=== PATIENT | female | born 1985 | race Caucasian/White ===

== ENCOUNTER 2016-11-07 09:59 | Emergency (ER) | payer SELFPAY ==
[~2016-11-07] VITALS: Ht 157.5 cm; Wt 64.2 kg
[~2016-11-07 09:59] MED LIST: PREN1TAB49 PO
[2016-11-07 10:13] VITALS: Ht 157.5 cm; Wt 64.2 kg
[2016-11-07] MEDS ORDERED: ACETAMINOPHEN 325 MG TAB PO ONE (11:30)
[2016-11-07 11:40] LABS: ADD UMIC NO; URINE BILIRUBIN (Dip) NEGATIVE (NEGATIVE); URINE BLOOD (Dip) NEGATIVE (NEGATIVE); URINE COLOR LT. YELLOW (YELLOW); URINE GLUCOSE (Dip) NEGATIVE (NEGATIVE); URINE KETONES (Dip) NEGATIVE (NEGATIVE); URINE LEUKOCYTE ESTERASE (Dip) NEGATIVE (NEGATIVE); URINE NITRITE (Dip) NEGATIVE (NEGATIVE); URINE TOTAL PROTEIN (Dip) NEGATIVE (NEGATIVE); URINE UROBILINOGEN (Dip) 0.2 E.U./dL (0.1-1.0)
--- NOTE | 2016-11-07 14:00 | RADRPT ---
PROCEDURE: US OB. CLINICAL INDICATION: . Abdominal pain. TECHNIQUE: Multiple sonographic images of the uterus were obtained. The images were revi ewed on a PACS workstation. COMPARISON: No prior studies are available for comparison. FINDINGS: There is a single live intrauterine gestation. heart rate is 152 beats per minute. Measurements were made in order to determine age. The results are as follows: BPD = 5.54 cm. HC = 17.20 cm. AC = 16.06 cm. FL = 3.50 cm. Estimated weight is 386 +/- 58 grams. LMP growth percentile is 48 %. Menstrual age by ultrasound dates is 20 weeks 2 days. The estimated date of delivery is 03/24/2017. #. Vertical pocket of amniotic fluid is 5.7 cm. Position is transverse with head to maternal right and placenta is anterior grade 1. There is no albert dence for an abruption or placenta previa. IMPRESSION: 1. Single live intrauterine gestation of 20 weeks 2 days menstrual age by ultrasound dates. 2. The estimated date of delivery is 03/24/2017. RPTAT: QQ .Yogi Sinclair MD, Date Time Electronically viewed and signed by .Yogi Sinclair MD, on 11/07/2016 14:00 .R/
[2016-11-07] MEDS ORDERED: ACET500C5 PO (14:02)
--- NOTE | 2016-11-07 14:06 | ERD ---
ER Documentation Chief Complaint Date/Time DATE: 11/07/16 TIME: 14:04 Chief Complaint 19 weeks , intermittent pelvic pain since August, worst today. HPI This 31-year-old female presents with some lower abdominal pain bilaterally. She is approximately 19 weeks by dates. She denies dysuria, fevers, bleeding. She has had this pain intermittently since August. She has OB follow-up. She is a G5 para 3. ROS All systems reviewed and are negative except as per history of present illness. Medications Home Meds Active Scripts Acetaminophen* (Tylophen*) 500 Mg Capsule, 1 CAP PO Q6H Y for PAIN AND OR ELEVATED TEMP, #20 CAP Prov:SALVADOR GRANADOS MD 11/07/16 Reported Medications Vits W-Ca,Fe,Fa(<1MG) () 1 Tab Tablet, 1 TAB PO DAILY 12/14/11 Allergies Allergies: Coded Allergies: No Known Drug Allergy (Verified Allergy, Unknown, 07/04/13) PMhx/Soc Medical and Surgical Hx: pt denies Medical Hx, pt denies Surgical Hx History of Surgery: No Hx Miscellaneous Medical Probl: No (NO OTHER MEDICAL PROBLEMS) Hx Alcohol Use: No Hx Substance Use: No Hx Tobacco Use: No Smoking Status: Never smoker Physical Exam Vitals Vital Signs Date Time Temp Pulse Resp B/P Pulse Ox O2 Delivery O2 Flow Rate FiO2 11/07/16 10:13 98.6 102 20 119/59 100 Physical Exam Const: [] Alert, [id number] per Head: Atraumatic Eyes: Normal Conjunctiva ENT: Normal External Ears, Nose and Mouth. Neck: Full range of motion..~ No meningismus. Resp: Clear to auscultation bilaterally Cardio: Regular rate and rhythm, no murmurs Abd: Soft, minimal generalized lower abdominal tenderness without exquisite tenderness at McBurney's point no rebound. There is a mass consistent with a second trimester , non distended. Normal bowel sounds Skin: No petechiae or rashes Back: No midline or flank tenderness Ext: No cyanosis, or edema Neur: Awake and alert Psych: Normal Mood and Affect Results 24 hrs Laboratory Tests Test 11/07/16 11:12 Urine Bilirubin NEGATIVE Urine Clarity CLEAR Urine Color LT. YELLOW Urine Glucose NEGATIVE% Urine Hemoglobin NEGATIVE Urine Ketones NEGATIVE Urine Leukocyte Esterase NEGATIVE Urine Nitrite NEGATIVE Urine Specific [place] 1.010 Urine Total Protein NEGATIVE Urine Urobilinogen 0.2 E.U./dL Urine pH 7.5 Current Medications Medications (Trade) Dose Ordered Sig/Freddy Route PRN Reason Start Time Stop Time Status Last Admin Dose Admin Acetaminophen (Tylenol Tab) 650 mg ONCE ONCE PO 11/07/16 11:30 11/07/16 11:31 DC 11/07/16 11:29 Procedures/MDM Pelvic ultrasound shows a normal-appearing second trimester without evidence of adnexal masses or acute complications. Urine is negative for leukocytes, nitrites, glucose, blood. Patient was given Tylenol for pain. Patient presents with pelvic pain of early of uncertain etiology. She will treated with Tylenol home and instructed to follow-up with OB this week. There is no evidence of ectopic , acute complications of . Signs or symptoms to suggest appendicitis, acute abdomen, PID or tubo-ovarian abscess, or additional causes of lower abdominal pain Departure Diagnosis: Primary Impression: Abdominal pain Abdominal location: lower abdomen, unspecified Qualified Code: R10.30 - Lower abdominal pain Condition: Stable Patient Instructions: Abdominal Pain, Early Additional Instructions: Examines normal hoy. Cheque otro vez con chavez doctor primario en el proximo willard or regresa para mas o nueva simptomas. SALVADOR GRANADOS MD Nov 07, 2016 14:06
== END 2016-11-07 14:17 | disposition home or self-care (01) ==
LOC: FTE 09:59
DX: O26.892 Other specified pregnancy related conditions, second trimester (principal); R10.30 Lower abdominal pain, unspecified; Z3A.20 20 weeks gestation of pregnancy
CPT/HCPCS: 76805; 81003

== ENCOUNTER 2016-11-15 11:00 | Outpatient (CLI) | payer SELFPAY ==
[~2016-11-15] VITALS: Ht 160 cm; Wt 65.5 kg
[~2016-11-15 11:00] MED LIST changes: +ACET500C5 PO
[2016-11-15] MEDS ORDERED: LACTATED RINGER'S 1,000 ML IV SCH (11:07)
[2016-11-15 11:22] VITALS: Ht 160 cm; Wt 65.5 kg
[2016-11-15] MEDS ORDERED: LIDOCAINE 1% (MPF) 30 ML INJ INJ PRN (11:30)
[2016-11-15] MEDS ORDERED: MISOPROSTOL 200 MCG TAB PR PRN (11:30)
[2016-11-15] MEDS ORDERED: IBUPROFEN 600 MG TAB PO PRN (11:30)
[2016-11-15] MEDS ORDERED: LACTATED RINGER'S 1,000 ML IV PRN (11:30)
[2016-11-15] MEDS ORDERED: OXYTOCIN 30 UNITS/LR 500 ML IV PRN (11:30)
[2016-11-15] MEDS ORDERED: CARBOPROST 250 MCG INJ IM PRN (11:30)
[2016-11-15] MEDS ORDERED: BUTORPHANOL 2 MG INJ IV PRN (11:30)
[2016-11-15] MEDS ORDERED: METHYLERGONOVINE 0.2 MG INJ IM PRN (11:30)
[2016-11-15] MEDS ORDERED: OXYTOCIN 30 UNITS/LR 500 ML IV SCH ×2 (11:30)
--- NOTE | 2016-11-15 12:13 | RADRPT ---
PROCEDURE: Limited obstetric ultrasound CLINICAL INDICATION: Pain , PTL TECHNIQUE: Multiple transverse and longitudinal grayscale images of the pelvis were obtained [place] sabdominally and transvaginally.. COMPARISON: 11/07/2016 FINDINGS: The cervix is closed with a length of 3.7 cm. There is a single viable intrauterine gestation. Cardiac activity is present with 154 beats per min [place]. There is a breech presentation. The placenta is anterior. There is no evidence for an abruption or placenta previa. RPTAT: AA IMPRESSION: Cervix length measures 3.7 cm. .Jared Hogue MD, MD Date Time Electronically viewed and signed by .Jared Hogue MD, on 11/15/2016 12:13 .S/
[2016-11-15 12:39] LABS: ADD UMIC YES; URINE BILIRUBIN (Dip) NEGATIVE (NEGATIVE); URINE BLOOD (Dip) NEGATIVE (NEGATIVE); URINE COLOR LT. YELLOW (YELLOW); URINE GLUCOSE (Dip) NEGATIVE (NEGATIVE); URINE KETONES (Dip) NEGATIVE (NEGATIVE); URINE LEUKOCYTE ESTERASE (Dip) 1+ (NEGATIVE); URINE NITRITE (Dip) NEGATIVE (NEGATIVE); URINE TOTAL PROTEIN (Dip) NEGATIVE (NEGATIVE); URINE UROBILINOGEN (Dip) 0.2 E.U./dL (0.1-1.0)
[2016-11-15 13:01] LABS: BACTERIA,URINE FEW; SQUAMOUS EPITHELIAL CELL,UR FEW; URINE RBCS NONE SEEN /HPF (0)
== END 2016-11-15 13:25 | disposition home or self-care (01) ==
LOC: OBT 11:00 → L-D 11:01 → OBT 13:25
PROVIDERS: ATTEND Obstetrics & Gynecology
DX: O60.02 Preterm labor without delivery, second trimester (principal); Z3A.22 22 weeks gestation of pregnancy
CPT/HCPCS: 76817; 81001; G0463; 81003

== ENCOUNTER 2017-01-17 19:45 | Inpatient (IN) | payer MEDICAID ==
[~2017-01-17] VITALS: Ht 162.6 cm; Wt 68.1 kg
[~2017-01-17 19:45] MED LIST changes: -ACET500C5 PO
[2017-01-17] MEDS ORDERED: LACTATED RINGER'S 500 ML IV ONE (21:00)
--- NOTE | 2017-01-17 21:30 | RADRPT ---
PROCEDURE: Limited obstetric ultrasound CLINICAL INDICATION: Pain TECHNIQUE: Multiple transverse and longitudinal grayscale images of the pelvis were obtained [place] sabdominally and transvaginally.. COMPARISON: 11/15/2016 FINDINGS: The cervix is closed with a length of 3.6 cm. There is a single viable intrauterine gestation. Cardiac activity is present with 146 beats per min kamar. There is a vertex presentation. The placenta is anterior. There is no evidence for an abruption or placenta previa. RPTAT: AA IMPRESSION: Cervix length measures 3.6 cm. .Jared Hogue MD, Date Time Electronically viewed and signed by .Jared Hogue MD, on 01/17/2017 21:30 .S/
[2017-01-17 21:51] LABS: ADD SCAN DIFF NO
[2017-01-17 21:53] LABS: BASOPHILS % 0.3 % (0.0-2.0); EOSINOPHILS % 0.3 % (0.0-7.0); HEMATOCRIT 34.4 % (37.0-47.0); LYMPHOCYTES # 2.1 10^3/ul (0.8-2.9); LYMPHOCYTES % 19.7 % (15.0-51.0); MEAN CORPUSCULAR HEMOGLOBIN 32.2 pg (29.0-33.0); MEAN CORPUSCULAR HGB CONC 34.9 g/dl (32.0-37.0); MEAN CORPUSCULAR VOLUME 92.2 fl (82.0-101.0); MEAN PLATELET VOLUME 9.8 fl (7.4-10.4); MONOCYTE # 0.5 10^3/ul (0.3-0.9); MONOCYTES % 4.5 % (0.0-11.0); NEUTROPHIL # 7.8 10^3/ul (1.6-7.5); NEUTROPHILS % 74.1 % (39.0-77.0); PLATELET COUNT 247 10^3/UL (140-415); RED BLOOD COUNT 3.73 10^6/ul (4.20-5.40); RED CELL DISTRIBUTION WIDTH 12.5 % (11.5-14.5); WHITE BLOOD COUNT 10.5 10^3/ul (4.8-10.8)
[2017-01-17 21:58] LABS: ADD UMIC YES; URINE BILIRUBIN (Dip) NEGATIVE (NEGATIVE); URINE BLOOD (Dip) NEGATIVE (NEGATIVE); URINE COLOR LT. YELLOW (YELLOW); URINE GLUCOSE (Dip) NEGATIVE (NEGATIVE); URINE KETONES (Dip) TRACE (NEGATIVE); URINE LEUKOCYTE ESTERASE (Dip) 1+ (NEGATIVE); URINE NITRITE (Dip) NEGATIVE (NEGATIVE); URINE TOTAL PROTEIN (Dip) NEGATIVE (NEGATIVE); URINE UROBILINOGEN (Dip) 0.2 E.U./dL (0.1-1.0)
[2017-01-17 22:12] LABS: BACTERIA,URINE MODERATE; SQUAMOUS EPITHELIAL CELL,UR MANY; URINE RBCS NONE SEEN /HPF (0)
[2017-01-17 22:20] LABS: ALBUMIN 3.7 g/dl (3.3-4.9)
[2017-01-17 22:21] LABS: POTASSIUM 3.5 mmol/L (3.5-5.1)
[2017-01-17 22:23] LABS: BILIRUBIN,INDIRECT 0.3 mg/dl (0-1.1); BILIRUBIN,TOTAL 0.3 mg/dl (0.2-1.3); CREATININE 0.43 mg/dl (0.44-1.00)
[2017-01-17 22:24] LABS: ALBUMIN/GLOBULIN RATIO 1.02; CALCIUM 9.3 mg/dl (8.4-10.2); TOTAL PROTEIN 7.3 g/dl (6.1-8.1)
[2017-01-17] MEDS ORDERED: CEFTRIAXONE 1 GM/50 ML (PMX) 50 ML IVPB ONE (23:00)
[2017-01-18] MEDS ORDERED: TERBUTALINE 1 MG/ML INJ SC ONE
[2017-01-18] MEDS ORDERED: LACTATED RINGER'S 1,000 ML IV SCH (00:25)
[2017-01-18] MEDS: SOD CHLORIDE 0.9% 1,000 ML IV SCH ×3 (01:29→18:52)
[2017-01-18] MEDS ORDERED: CEFTRIAXONE 1 GM/50 ML (PMX) 50 ML IVPB ONE (01:30)
--- NOTE | 2017-01-18 01:45 | HP ---
Date/Time of Note Date/Time of Note DATE: 01/18/17 TIME: 01:37 OB - History Hx of Present Free Text/Dictation 31y.o [id number] to triage with c/o nause and back pain for the laast few hrs at 31 weeks wbc [id number] with urine leukoesteras wbc 5-10 left CVA tenderness ++ CL 3.6 admitted for IV hydration with antibiotics Chief Complaint: back pain and nause Estimated Due Date: Mar 21, 2017 : 5 Para: 3 Spontaneous : 1 Therapeutic : 0 Care: Good Care Ultrasounds: Normal mid trimester US Obstetrical Complications: None Medical Complications: None Past Family/Social History * Past Medical, Surgical, Family and Obstetric Histories reviewed from chart. OB Admission Exam Physical Exam HEENT: WNL Heart: Rhythm Normal Lungs: Clear, Equal Abdomen: WNL Extremities: Normal Reflexes: Normal Cervical Dilatation: other Effacement: Other Station: Other Membranes: Intact Amniotic Fluid: Unevaluable Heart Rate: 140's Accelerations: Accelerations Present Decelerations: No Decelerations Varibility: Moderate Contractions on Admission: >10 Minutes Apart Intensity: Mild Last 72 hours Lab Results CBC & BMP 01/17/17 21:40 Liver Function Test 01/17/17 21:40 Alanine Aminotransferase (ALT/SGPT) 30 Albumin 3.7 Alkaline Phosphatase 130 H Aspartate Amino Transf (AST/SGOT) 24 Direct Bilirubin 0.00 Total Protein 7.3 OB Assessment/Plan Other Assessment: IUP 31weeks LIBRARY CLERK Other plan: IV hydration with rocMILDRED Baptiste MD January 18, 2017 01:45
[2017-01-18] MEDS ORDERED: ACETAMINOPHEN 325 MG TAB PO ONE (02:30)
--- NOTE | 2017-01-18 03:51 | TRIAGE ---
OB Triage Datetime Report Generated by CPN: 01/18/2017 03:51 Datetime: 01/18/2017 03:00 Labor Evaluation Frequency: x4 Monitor Mode: External Duration (sec)2399: 50-80 Quality: Mild Resting Tone [place]: Relaxed Contraction Comments: pt c/o uc pain at 5 out of 10. Heart Rate FHR Baseline Rate: 145 Monitor Mode: External US FHR Baseline Changes: No Baseline Change Variability: Moderate 6-25 bpm Accelerations: 10X10 Decelerations: None Category: Category I Pain Assessment Pain Scale: 5 Pain Presence: Intermittent Pain Type: Cramping; Ache Pain Location: Abdomen; Head Pain Goal: 0 Pain Relief Measures: Pain Medication Given Pain Assessment Comments: pt given tylenol 650mg po Datetime: 01/18/2017 02:00 Labor Evaluation Frequency: x3 Monitor Mode: External Duration (sec)2399: 60-90 Quality: Mild Resting Tone [place]: Relaxed Contraction Comments: pt c/o uc pain at 6 out of 10 Heart Rate FHR Baseline Rate: 150 Monitor Mode: External US FHR Baseline Changes: No Baseline Change Variability: Moderate 6-25 bpm Accelerations: 15X15 Decelerations: None Category: Category I Pain Assessment Pain Scale: 6 Pain Presence: Intermittent Pain Type: Cramping; Ache Pain Location: Abdomen; Head Pain Goal: 0 Datetime: 01/18/2017 00:55 Assessment Type: Admission Assessment Vaginal Bleeding: None Maternal Assessment Level of Consciousness: Fully Conscious DTR's/Clonus: DTRs 2+; No Clonus Headache: Denies Blurred Vision: No Respiratory Effort: Unlabored; Regular Rhythm; Equal Expansion Breath Sounds, Left: Clear and Equal Breath Sounds, Right: Clear and Equal Nausea/Vomiting: Denies RUQ Epigastric Pain: Denies Lower Extremities Edema: None Degree: None Upper Extremities Edema: None Degree: None Facial Edema: None Fall Risk Assessment History of Falling: (0) No Secondary Diagnosis: (0) No Ambulatory Aid: (0) Bedrest/Nurse Assist IV Therapy: (20) Yes Gait: (0) Normal/Bedrest/Immobile Mental Status: (0) Oriented to Own Ability Fall Score: 20 Fall Risk Score Definition: No Risk: No action required Labor Evaluation Frequency: x1 Monitor Mode: External Duration (sec)2399: 60 Quality: Moderate Resting Tone [place]: Relaxed Heart Rate FHR Baseline Rate: 150 Variability: Moderate 6-25 bpm Accelerations: 15X15 Decelerations: Variable Category: Category II Pain Assessment Pain Scale: 6 Pain Presence: Intermittent Pain Type: Contraction Pain Location: Abdomen Pain Goal: 0 Membrane Status: Intact Datetime: 01/18/2017 00:00 Labor Evaluation Frequency: x5 with irritability Monitor Mode: External Duration (sec)2399: 60-100 Pattern: Normal: <= 5 Contractions in 10 Minutes Resting Tone [place]: Relaxed Heart Rate FHR Baseline Rate: 145 Monitor Mode: External US Variability: Moderate 6-25 bpm Accelerations: 15X15 Decelerations: None Category: Category I Datetime: 01/17/2017 23:32 Vaginal Exam Dilatation (cms): 0.0 Effacement (%): 0 Station: -3 Exam By: Zhang Tungate RN Vaginal Bleeding: None Cervix, Consistency: Moderate Cervix, Position: Posterior Datetime: 01/17/2017 23:00 Stage of : OB Triage Labor Evaluation Frequency: 1-2.5 Monitor Mode: External Duration (sec)2399: 40-70 Quality: Moderate Resting Tone [place]: Relaxed Heart Rate FHR Baseline Rate: 155 Monitor Mode: External US Variability: Moderate 6-25 bpm Accelerations: 15X15 Decelerations: None Category: Category I Pain Assessment Pain Scale: 6 Pain Presence: Intermittent Pain Type: Contraction; Pressure Pain Location: Abdomen Pain Goal: 3 Datetime: 01/17/2017 22:29 Stage of : OB Triage Datetime: 01/17/2017 22:21 Stage of : OB Triage Labor Evaluation Frequency: 1-6 Monitor Mode: External Duration (sec)2399: 30-70 Quality: Mild Pattern: Normal: <= 5 Contractions in 10 Minutes Resting Tone [place]: Relaxed Heart Rate FHR Baseline Rate: 145 Monitor Mode: External US Variability: Moderate 6-25 bpm Accelerations: 15X15 Decelerations: None Category: Category I Pain Assessment Pain Scale: 6 Pain Presence: None/Denies Pain Type: N/A Pain Location: Abdomen Pain Goal: 3 Pain Relief Measures: Pain Medication Given Datetime: 01/17/2017 21:28 Stage of : OB Triage Labor Evaluation Frequency: IRREGUALAR Monitor Mode: External Duration (sec)2399: 30-60 Quality: Mild Heart Rate FHR Baseline Rate: 145 Monitor Mode: External US Variability: Moderate 6-25 bpm Accelerations: 15X15 Decelerations: None Category: Category I Datetime: 01/17/2017 21:10 Time of Arrival: 01/17/2017 19:40 EGA: 31.0 Arrived By: Ambulatory Arrived From: Home Chief Complaint: PT C/O BACK PAIN AND ABDOMEN TIGHTNESS Movement: Present Contractions: Irregular Time Contractions Began: 01/17/2017 16:00 Rupture of Membranes: Denies Vaginal Discharge: Denies Recent Sexual Intercouse: Denies Abdominal Trauma: Not Applicable Patient Complaints: Contractions Time Provider Notified: 01/18/2017 20:28 Provider Notified: DR GEE Initial Plan: TOCO AND EFM APPLIED, Datetime: 01/17/2017 20:31 Stage of : OB Triage Datetime: 01/17/2017 20:20 Stage of : OB Triage Labor Evaluation Frequency: 30 Monitor Mode: External Duration (sec)2399: 30 Quality: Moderate Pattern: Normal: <= 5 Contractions in 10 Minutes Resting Tone [place]: Relaxed Heart Rate FHR Baseline Rate: 145 Monitor Mode: External US Variability: Moderate 6-25 bpm Accelerations: 10X10 Decelerations: None Category: Category I Pain Assessment Pain Scale: 6 Pain Presence: None/Denies Pain Type: Contraction Pain Location: Abdomen Pain Goal: 3 Datetime: 11/15/2016 13:11 Stage of : OB Triage Datetime: 11/15/2016 12:20 Labor Evaluation Frequency: X1 Monitor Mode: External Duration (sec)2399: 30 Resting Tone [place]: Relaxed Pain Assessment Pain Scale: 0 Pain Presence: None/Denies Pain Goal: 3 Pain Relief Measures: Comfort Measures Pain Assessment Comments: STATES PAIN GONE Datetime: 11/15/2016 12:17 Comments: OFF DUE TO GESTATIONAL AGE Datetime: 11/15/2016 12:10 Stage of : OB Triage Datetime: 11/15/2016 12:00 Comments: U/S OFF DUE TO GESTATIONAL AGE Datetime: 11/15/2016 11:33 Stage of : OB Triage Datetime: 11/15/2016 11:18 Stage of : OB Triage Assessment Type: Triage EGA: 22.0 Maternal Assessment Level of Consciousness: Fully Conscious DTR's/Clonus: DTRs 2+; No Clonus Headache: Denies Blurred Vision: No Respiratory Effort: Unlabored; Regular Rhythm; Equal Expansion Breath Sounds, Left: Clear and Equal Breath Sounds, Right: Clear and Equal Nausea/Vomiting: Denies RUQ Epigastric Pain: Denies Lower Extremities Edema: None Degree: None Upper Extremities Edema: None Degree: None Facial Edema: None Temperature Route: Axillary Fall Risk Assessment History of Falling: (0) No Secondary Diagnosis: (0) No Ambulatory Aid: (0) Bedrest/Nurse Assist IV Therapy: (0) No Gait: (0) Normal/Bedrest/Immobile Mental Status: (0) Oriented to Own Ability Fall Score: 0 Fall Risk Score Definition: No Risk: No action required Labor Evaluation Frequency: 0 Monitor Mode: External Pattern: Normal: <= 5 Contractions in 10 Minutes Resting Tone [place]: Relaxed Heart Rate FHR Baseline Rate: 155 Monitor Mode: External US Variability: Moderate 6-25 bpm Decelerations: None Pain Assessment Pain Scale: 4 Pain Presence: Intermittent Pain Type: Cramping Pain Location: Abdomen Pain Goal: 3 Pain Relief Measures: Comfort Measures Datetime: 11/15/2016 11:17 Time of Arrival: 11/15/2016 10:53 Arrived By: Ambulatory Arrived From: Home Chief Complaint: C/O LOWER PELVIC PAIN FOR PAST WEEK, WAS IN ER YESTERDAY RECEIVED U/S AND SENT H OME Movement: Present Contractions: Denies/Absent Rupture of Membranes: Denies Vaginal Bleeding: None Vaginal Discharge: Denies Recent Sexual Intercouse: Denies Abdominal Trauma: Not Applicable Patient Complaints: Cramping Time Provider Notified: 11/15/2016 12:10 Provider Notified: ALEXI Initial Plan: MONITOR, CL, U/A
[2017-01-18] MEDS: ACETAMINOPHEN 325 MG TAB PO PRN ×2 (08:06→13:25)
--- NOTE | 2017-01-18 17:18 | QN ---
Documentation Comment Vitals signs are stable no fever since admit preliminary 24 hours urine cultures negative currently she is on Rocephin has no complaint of flank pain stating her backache has gone the next dose of Rocephin would be at 1 AM on the will wait for the final urine culture. LUISITO CASTELLANOS MD January 18, 2017 17:18
[2017-01-19] MEDS: CEFTRIAXONE 1 GM/50 ML (PMX) 50 ML IVPB SCH (01:44)
[2017-01-19] MEDS: SOD CHLORIDE 0.9% 1,000 ML IV SCH ×3 (03:17→20:07)
[2017-01-19] MEDS ORDERED: TERBUTALINE 1 MG/ML INJ SC STA (15:58)
[2017-01-19] MEDS ORDERED: BETAMET NA PHOS/AC(6 MG/ML) 5ML INJ IM ONE (16:00)
--- NOTE | 2017-01-19 16:49 | QN ---
Documentation Comment Afebrile has no complaint of flank pain back pain or lower abdominal final urine culture mixed gram-positive, lactobacillus ,requested repeat clean-catch, urine culture, she had 2 doses of betamethasone will continue present treatment, LUISITO CASTELLANOS MD January 19, 2017 16:49
[2017-01-19] MEDS ORDERED: TERBUTALINE 1 MG/ML INJ SC ONE (19:30)
[2017-01-19] MEDS: ACETAMINOPHEN 325 MG TAB PO PRN (22:29)
[2017-01-20 00:34] VITALS: Ht 162.6 cm; Wt 68.1 kg
[2017-01-20] MEDS: CEFTRIAXONE 1 GM/50 ML (PMX) 50 ML IVPB SCH (01:30)
[2017-01-20] MEDS: SOD CHLORIDE 0.9% 1,000 ML IV SCH ×2 (04:39→11:32)
[2017-01-20] MEDS ORDERED: TERBUTALINE 1 MG/ML INJ SC ONE (07:00)
[2017-01-20] MEDS ORDERED: MULTIVIT/MIN/FOLATE/IRON/PREN TAB PO SCH (09:00)
--- NOTE | 2017-01-20 11:09 | RADRPT ---
PROCEDURE: Limited OB ultrasound CLINICAL INDICATION: labor. TECHNIQUE: Sonographic evaluation to assess the cervical length was performed. Transabdominal kosta ging of the gravid uterus was performed. COMPARISON: No prior exam is available for comparison. FINDINGS: There is a single live intrauterine with cardiac activity, with a heart rate o f 179 bpm. position is cephalic. The placenta is anterior. There is funneling of the cervix . The close cervical length measures 3.4 cm. IMPRESSION: Cervical funneling. The closed cervical length measures 3.4 cm. RPTAT: HH .Debbie Mcknight MD, MD Date Time Electronically viewed and signed by .Debbie Mcknight MD, MD on 01/20/2017 11:08 .G/
[2017-01-20] MEDS ORDERED: BETAMET NA PHOS/AC(6 MG/ML) 5ML INJ IM ONE (16:00)
--- NOTE | 2017-01-20 18:44 | DS ---
Date/Time of Note Date/Time of Note DATE: 01/20/17 TIME: 18:36 Obstetrical Discharge Record Final Diagnosis Final Diagnosis: not delivered Other Final Diagnosis January 20, 2070 Hospital visit and discharge 31y.o G5, P3 Ab 1, presented to triage with c/o nausea and back pain for the last few days .At 31 weeks now. wbc [id number] with urine leukoesteras wbc 5-10 left CVA tenderness ++ CL 3.6 admitted for IV hydration with antibiotics Upon admission she was placed on antibiotic Rocephin 1 g every night. Due to the contraction that she had a cervical length measurement was performed. Her cervical length on January 17 was 3.6 today on January 20 is 3.4. Due to contractions first dose of betamethasone was started yesterday and today was given the second dose Patient is now fairly comfortable and not much of the contractions. Due to urinary tract infection a prescription was given for Macrobid 100 mg twice daily to continue for 2 weeks . She will have her follow up care in her OB office as well as in [facility] clinic Current Medications Medications (Trade) Dose Ordered Sig/Freddy Route PRN Reason Start Time Stop Time Status Last Admin Dose Admin Lactated Ringer's 500 ml @ 500 mls/hr Q1H ONCE IV 01/17/17 21:00 01/17/17 21:59 DC 01/17/17 21:46 Ceftriaxone Sodium (Rocephin) 50 ml @ 100 mls/hr ONCE ONCE IVPB 01/17/17 23:00 01/17/17 23:29 DC Terbutaline Sulfate 0.25 mg 0.25 mg ONCE ONCE SC 01/18/17 00:00 01/18/17 00:01 DC 01/18/17 00:08 Lactated Ringer's 1,000 ml @ 125 mls/hr Q8H IV 01/18/17 00:25 01/18/17 01:18 DC Sodium Chloride 1,000 ml @ 125 mls/hr Q8H IV 01/18/17 01:30 01/20/17 11:32 Ceftriaxone Sodium (Rocephin) 50 ml @ 100 mls/hr ONCE ONCE IVPB 01/18/17 01:30 01/18/17 01:59 DC 01/18/17 01:30 Acetaminophen 650 mg 650 mg ONCE ONCE PO 01/18/17 02:30 01/18/17 02:34 DC 01/18/17 03:00 Ceftriaxone Sodium (Rocephin) 50 ml @ 100 mls/hr Q24H IVPB 01/19/17 01:30 01/20/17 01:30 Acetaminophen (Tylenol Tab) 650 mg Q4H PRN PO PAIN AND OR ELEVATED TEMP 01/18/17 08:00 01/19/17 22:29 Terbutaline Sulfate (Brethine) 0.25 mg NOW STAT SC 01/19/17 15:58 01/19/17 16:07 DC 01/19/17 16:13 Betamethasone Acet/Betameth SodPhos (Celestone Soluspan) 12 mg ONCE ONCE IM 01/19/17 16:00 01/19/17 16:07 DC 01/19/17 16:13 Terbutaline Sulfate (Brethine) 0.25 mg ONCE ONCE SC 01/19/17 19:30 01/19/17 19:30 DC Betamethasone Acet/Betameth SodPhos (Celestone Soluspan) 12 mg ONCE ONCE IM 01/20/17 16:00 01/20/17 16:01 DC 01/20/17 16:07 Terbutaline Sulfate (Brethine) 0.25 mg ONCE ONCE SC 01/20/17 07:00 01/20/17 07:01 DC 01/20/17 07:08 Prenat Multivit/ Tool And Die Manager/Iron/Folic Ac ( S) 1 tab DAILY PO 01/20/17 09:00 01/20/17 08:47 Complications Other (Urinary tract infection pyelonephritis) Condition on Discharge Physical Assessment Voiding: Yes Bowel Movement: Yes Breast: Soft, non-tender Fundus: Other (Normal for date of just) Patient Condition: Good PRADEEP KING MD January 20, 2017 18:44
== END 2017-01-20 19:15 | disposition home or self-care (01) | DRG 781 ==
LOC: OBT 19:45 → L-D 19:47 → OBT 23:55 → L-D 23:55 → OBG 01-18 00:37
PROVIDERS: ADMIT Obstetrics & Gynecology; ATTEND Obstetrics & Gynecology
DX: O23.03 Infections of kidney in pregnancy, third trimester (principal); Z3A.31 31 weeks gestation of pregnancy
CPT/HCPCS: 36415; 76817; 80053; 81001; 81003; 85025; 87086; 96360; 96361; 96372; A4310; G0463; J0696; J0702; J3105; J7030; J7120

== ENCOUNTER 2017-02-21 17:07 | Outpatient (CLI) | payer MEDICAID ==
[~2017-02-21] VITALS: Ht 160 cm; Wt 71.5 kg
[2017-02-21 17:38] VITALS: BP 109/63; PULSE 84; Ht 160 cm; Wt 71.5 kg
[2017-02-21] MEDS: LACTATED RINGER'S 1,000 ML IV SCH ×2 (18:30→22:03)
[2017-02-21] MEDS ORDERED: TERBUTALINE 1 MG/ML INJ SC ONE (21:00)
[2017-02-21] MEDS ORDERED: NIFEdipine 10 MG CAP PO ONE ×2 (22:00→23:00)
[2017-02-21 22:48] LABS: ADD UMIC NO; URINE BILIRUBIN (Dip) NEGATIVE (NEGATIVE); URINE BLOOD (Dip) NEGATIVE (NEGATIVE); URINE COLOR LT. YELLOW (YELLOW); URINE GLUCOSE (Dip) NEGATIVE (NEGATIVE); URINE KETONES (Dip) 3+ (NEGATIVE); URINE LEUKOCYTE ESTERASE (Dip) NEGATIVE (NEGATIVE); URINE NITRITE (Dip) NEGATIVE (NEGATIVE); URINE TOTAL PROTEIN (Dip) NEGATIVE (NEGATIVE); URINE UROBILINOGEN (Dip) 0.2 E.U./dL (0.1-1.0)
--- NOTE | 2017-02-22 03:16 | PN ---
Date/Time of Note Date/Time of Note DATE: 02/22/17 TIME: 03:12 OB Subjective Subjective Subjective 31 Year-old with SIUP at 36 weeks presents with a chief complaint of ucs. She states good movement. She denies nausea, vomiting, shortness of breath, chest pain, headache, visual changes, vaginal bleeding or LOF. OB Objective Objective Objective General: Patient appears well, alert and oriented, NAD, appropriate mood and affect ABD: gravid, soft, non-tender. Back: No CVA tenderness (B/L) LE: No clubbing, cyanosis, edema, thigh or calf tenderness bilaterally FHT: 140 bpm , moderate variability with acceleration, no deceleration-category I Contractions: Q 4-6 min.e SVE: /-3/ceph/intact membrane OB Assessment/Plan Other plan: 31 Year-old with SIUP at 36 weeks with PTc, received IVF, procardia x1. There was no further ucs. No cx changes in repeat exam - FHR: No sign of metabolic acidosis- Category I - Continuous EFM, toco - U/A: nml - Symptoms and sign of labor, preeclampsia, kick count discussed with patient, she voiced understanding. All of her questions answered. - Patient was discharged home in stable condition with the appropriate discharge instructions provided. I would like patient to have close follow-up with her primary physician or outpatient clinic in 1-2 days or return to the ER for worsening symptoms or any other urgent concerns. LIANA JONES Feb 22, 2017 03:16
--- NOTE | 2017-02-22 04:50 | TRIAGE ---
OB Triage Datetime Report Generated by CPN: 02/22/2017 04:49 Datetime: 02/21/2017 23:58 Labor Evaluation Frequency: IRREGULAR Monitor Mode: External Duration (sec)2399: 30-120 Quality: Mild Pattern: Normal: <= 5 Contractions in 10 Minutes Resting Tone [place]: Relaxed Heart Rate FHR Baseline Rate: 145 Monitor Mode: External US FHR Baseline Changes: No Baseline Change Variability: Moderate 6-25 bpm Accelerations: 15X15 Decelerations: None Category: Category I Datetime: 02/21/2017 23:00 Labor Evaluation Frequency: 5-7 Monitor Mode: External Duration (sec)2399: 60-120 Quality: Mild Pattern: Normal: <= 5 Contractions in 10 Minutes Resting Tone [place]: Relaxed Heart Rate FHR Baseline Rate: 145 Monitor Mode: External US FHR Baseline Changes: No Baseline Change Variability: Moderate 6-25 bpm Accelerations: 15X15 Decelerations: None Category: Category I Datetime: 02/21/2017 22:27 Stage of : OB Triage Datetime: 02/21/2017 22:00 Labor Evaluation Frequency: 2-3 Monitor Mode: External Duration (sec)2399: 60-120 Quality: Mild Pattern: Normal: <= 5 Contractions in 10 Minutes Resting Tone [place]: Relaxed Heart Rate FHR Baseline Rate: 145 Monitor Mode: External US FHR Baseline Changes: No Baseline Change Variability: Moderate 6-25 bpm Accelerations: 15X15 Decelerations: None Category: Category I Datetime: 02/21/2017 21:00 Labor Evaluation Frequency: 3 Monitor Mode: External Duration (sec)2399: 60-100 Quality: Mild Pattern: Normal: <= 5 Contractions in 10 Minutes Resting Tone [place]: Relaxed Heart Rate FHR Baseline Rate: 145 Monitor Mode: External US FHR Baseline Changes: No Baseline Change Variability: Moderate 6-25 bpm Accelerations: 15X15 Decelerations: None Category: Category I Datetime: 02/21/2017 20:00 Labor Evaluation Frequency: IRREGULAR Monitor Mode: External Duration (sec)2399: 60-100 Quality: Mild Pattern: Normal: <= 5 Contractions in 10 Minutes Resting Tone [place]: Relaxed Heart Rate FHR Baseline Rate: 135 Monitor Mode: External US FHR Baseline Changes: No Baseline Change Variability: Moderate 6-25 bpm Accelerations: 15X15 Decelerations: None Category: Category I Datetime: 02/21/2017 19:34 Vaginal Exam Dilatation (cms): 1.0 Effacement (%): 50 Station: -3 Exam By: NARA VARNER Vaginal Bleeding: None Cervix, Consistency: Firm Cervix, Position: Posterior Datetime: 02/21/2017 19:20 Assessment Type: Triage Maternal Assessment Level of Consciousness: Fully Conscious DTR's/Clonus: DTRs 2+; No Clonus Headache: Denies Blurred Vision: No Respiratory Effort: Unlabored; Regular Rhythm; Equal Expansion Breath Sounds, Left: Clear and Equal Breath Sounds, Right: Clear and Equal Nausea/Vomiting: Denies RUQ Epigastric Pain: Denies Facial Edema: None Fall Risk Assessment History of Falling: (0) No Secondary Diagnosis: (0) No Ambulatory Aid: (0) Bedrest/Nurse Assist IV Therapy: (0) No Gait: (0) Normal/Bedrest/Immobile Mental Status: (0) Oriented to Own Ability Fall Score: 0 Fall Risk Score Definition: No Risk: No action required Datetime: 02/21/2017 18:06 Stage of : OB Triage Datetime: 02/21/2017 17:32 Stage of : OB Triage Assessment Type: Triage Maternal Assessment Level of Consciousness: Fully Conscious DTR's/Clonus: DTRs 2+; No Clonus Headache: Denies Blurred Vision: No Respiratory Effort: Unlabored; Regular Rhythm; Equal Expansion Breath Sounds, Left: Clear and Equal Breath Sounds, Right: Clear and Equal Nausea/Vomiting: Denies RUQ Epigastric Pain: Denies Facial Edema: None Temperature Route: Axillary Fall Risk Assessment History of Falling: (0) No Secondary Diagnosis: (0) No Ambulatory Aid: (0) Bedrest/Nurse Assist IV Therapy: (0) No Gait: (0) Normal/Bedrest/Immobile Mental Status: (0) Oriented to Own Ability Fall Score: 0 Fall Risk Score Definition: No Risk: No action required Labor Evaluation Frequency: 3-5 Monitor Mode: External Duration (sec)2399: 50-60 Quality: Mild Resting Tone [place]: Relaxed Heart Rate FHR Baseline Rate: 145 Monitor Mode: External US Variability: Moderate 6-25 bpm Decelerations: None Category: Category II Pain Assessment Pain Scale: 7 Pain Presence: Intermittent Pain Type: Cramping; Contraction Pain Location: Abdomen Pain Goal: 3 Pain Relief Measures: Comfort Measures Vaginal Exam Dilatation (cms): 1.0 Effacement (%): 50 Station: -3 Exam By: S PRASAD Membrane Status: Intact Datetime: 02/21/2017 17:31 Time of Arrival: 02/21/2017 17:15 EGA: 36.0 Arrived By: Ambulatory Chief Complaint: C/O UC'S Q 5 MIN SINCE 1200, DENIES BLEEDING OR LEAKING OF FLUID Movement: Present Contractions: Regular Contractions: 5 Rupture of Membranes: Denies Vaginal Bleeding: None Vaginal Discharge: Denies Recent Sexual Intercouse: Denies Abdominal Trauma: Not Applicable Patient Complaints: Contractions; Cramping Time Provider Notified: 02/21/2017 18:07 Provider Notified: SHAMSIGUALBERTO Initial Plan: MONITOR, IV HYDRATION, RECHECK VE IN 1 HOUR Datetime: 01/20/2017 18:12 Labor Evaluation Frequency: IRRIT Monitor Mode: External Pattern: Normal: <= 5 Contractions in 10 Minutes Resting Tone [place]: Relaxed Datetime: 01/20/2017 17:12 Labor Evaluation Frequency: X1/HR +IRRIT Labor Evaluation Frequency: X1/HR Monitor Mode: External Duration (sec)2399: 50 Duration (sec)2399: 40 Pattern: Normal: <= 5 Contractions in 10 Minutes Resting Tone [place]: Relaxed Datetime: 01/20/2017 16:12 Temperature Route: Oral Labor Evaluation Frequency: 0 Monitor Mode: External Pattern: Normal: <= 5 Contractions in 10 Minutes Resting Tone [place]: Relaxed Datetime: 01/20/2017 15:12 Labor Evaluation Frequency: 0 Monitor Mode: External Pattern: Normal: <= 5 Contractions in 10 Minutes Resting Tone [place]: Relaxed Datetime: 01/20/2017 14:12 Labor Evaluation Frequency: X2/HR +IRRIT Monitor Mode: External Duration (sec)2399: 40 TO 70 Quality: Mild Pattern: Normal: <= 5 Contractions in 10 Minutes Resting Tone [place]: Relaxed Datetime: 01/20/2017 13:17 Labor Evaluation Frequency: X2/HR +IRRIT Monitor Mode: External Duration (sec)2399: 60 TO 90 Quality: Mild Pattern: Normal: <= 5 Contractions in 10 Minutes Resting Tone [place]: Relaxed Datetime: 01/20/2017 12:12 Temperature Route: Oral Labor Evaluation Frequency: X4/HR +IRRIT Monitor Mode: External Duration (sec)2399: 40 TO 70 Quality: Mild Pattern: Normal: <= 5 Contractions in 10 Minutes Resting Tone [place]: Relaxed Pain Assessment Pain Scale: 1 Pain Presence: OCCASIONALLY Pain Goal: 3 Datetime: 01/20/2017 11:12 Labor Evaluation Frequency: X2/HR Monitor Mode: External Duration (sec)2399: 60 TO 70 Pattern: Normal: <= 5 Contractions in 10 Minutes Resting Tone [place]: Relaxed Pain Assessment Pain Scale: 1 Pain Presence: OCCASIONALLY Pain Goal: 3 Datetime: 01/20/2017 10:12 Labor Evaluation Frequency: X6/HR Monitor Mode: External Duration (sec)2399: 40 TO 90 Quality: Mild Pattern: Normal: <= 5 Contractions in 10 Minutes Resting Tone [place]: Relaxed Datetime: 01/20/2017 09:12 Labor Evaluation Frequency: X8/HR Monitor Mode: External Duration (sec)2399: 50 TO 80 Quality: Mild Pattern: Normal: <= 5 Contractions in 10 Minutes Resting Tone [place]: Relaxed Datetime: 01/20/2017 08:12 Maternal Assessment Level of Consciousness: Fully Conscious DTR's/Clonus: DTRs 2+; No Clonus Headache: Denies Breath Sounds, Left: Clear and Equal Breath Sounds, Right: Clear and Equal Nausea/Vomiting: Denies RUQ Epigastric Pain: Denies Temperature Route: Oral Labor Evaluation Frequency: X6/HR Duration (sec)2399: 50 TO 90 Quality: Mild Pattern: Normal: <= 5 Contractions in 10 Minutes Resting Tone [place]: Relaxed Datetime: 01/20/2017 07:27 Assessment Type: Ongoing Assessment Blurred Vision: No Respiratory Effort: Unlabored; Regular Rhythm; Equal Expansion Lower Extremities Edema: None Degree: None Upper Extremities Edema: None Degree: None Facial Edema: None Fall Risk Assessment History of Falling: (0) No Secondary Diagnosis: (0) No Ambulatory Aid: (0) Bedrest/Nurse Assist Gait: (0) Normal/Bedrest/Immobile Mental Status: (0) Oriented to Own Ability Datetime: 01/20/2017 07:08 Stage of : Antepartum Datetime: 01/20/2017 07:00 Stage of : Antepartum Labor Evaluation Frequency: 2-6 Monitor Mode: External Duration (sec)2399: 50-80 Pattern: Normal: <= 5 Contractions in 10 Minutes Resting Tone [place]: Relaxed Datetime: 01/20/2017 06:38 Stage of : Antepartum Datetime: 01/20/2017 06:23 Stage of : Antepartum Datetime: 01/20/2017 06:21 Stage of : Antepartum Pain Assessment Pain Scale: 6 Pain Presence: Intermittent Pain Type: Contraction Pain Location: Abdomen; Back Pain Relief Measures: Comfort Measures Datetime: 01/20/2017 06:00 Stage of : Antepartum Labor Evaluation Frequency: IRREG Monitor Mode: External Duration (sec)2399: 60-80 Pattern: Normal: <= 5 Contractions in 10 Minutes Resting Tone [place]: Relaxed Datetime: 01/20/2017 05:32 Stage of : Antepartum Datetime: 01/20/2017 05:00 Stage of : Antepartum Labor Evaluation Frequency: IRREG Monitor Mode: External Duration (sec)2399: 50-70 Pattern: Normal: <= 5 Contractions in 10 Minutes Resting Tone [place]: Relaxed Pain Assessment Pain Scale: 4 Pain Presence: Intermittent Pain Type: Contraction Pain Location: Abdomen; Back Pain Relief Measures: Comfort Measures Datetime: 01/20/2017 04:59 Stage of : Antepartum Nausea/Vomiting: Present Datetime: 01/20/2017 04:03 Stage of : Antepartum Labor Evaluation Frequency: occasional Monitor Mode: External Duration (sec)2399: 40-70 Pattern: Normal: <= 5 Contractions in 10 Minutes Resting Tone [place]: Relaxed Contraction Comments: pt states that she does not feel any contractions. Pain Assessment Pain Scale: 0 Pain Presence: None/Denies Pain Type: N/A Pain Relief Measures: Comfort Measures Datetime: 01/20/2017 03:06 Stage of : Antepartum Datetime: 01/20/2017 02:59 Stage of : Antepartum Labor Evaluation Frequency: Irregular Monitor Mode: External Duration (sec)2399: 40-60 Pattern: Normal: <= 5 Contractions in 10 Minutes Resting Tone [place]: Relaxed Pain Assessment Pain Scale: 0 Pain Presence: None/Denies Pain Type: N/A Pain Relief Measures: Comfort Measures Datetime: 01/20/2017 02:57 Stage of : Antepartum Datetime: 01/20/2017 02:02 Stage of : Antepartum Labor Evaluation Frequency: Occasional Monitor Mode: External Duration (sec)2399: 40-60 Pattern: Normal: <= 5 Contractions in 10 Minutes Resting Tone [place]: Relaxed Pain Assessment Pain Scale: 0 Pain Presence: None/Denies Pain Type: N/A Pain Relief Measures: Comfort Measures Datetime: 01/20/2017 01:04 Stage of : Antepartum Labor Evaluation Frequency: None Monitor Mode: External Pain Presence: None/Denies Pain Type: N/A Pain Relief Measures: Comfort Measures Datetime: 01/20/2017 00:15 Stage of : Antepartum Datetime: 01/20/2017 00:13 Stage of : Antepartum Datetime: 01/20/2017 00:06 Stage of : Antepartum Labor Evaluation Frequency: IRREGULAR Monitor Mode: External Duration (sec)2399: 40-60 Pattern: Normal: <= 5 Contractions in 10 Minutes Resting Tone [place]: Relaxed Heart Rate FHR Baseline Rate: 125 Monitor Mode: External US Variability: Moderate 6-25 bpm Accelerations: 15X15 Decelerations: None Category: Category I Datetime: 01/19/2017 23:17 Stage of : Antepartum Pain Assessment Pain Scale: 2 Pain Presence: Intermittent Pain Type: Contraction Pain Location: Abdomen; Back Pain Relief Measures: Comfort Measures Datetime: 01/19/2017 23:12 Stage of : Antepartum Datetime: 01/19/2017 22:56 Stage of : Antepartum Labor Evaluation Frequency: Irregular Monitor Mode: External Duration (sec)2399: 40-60 Pattern: Normal: <= 5 Contractions in 10 Minutes Resting Tone [place]: Relaxed Pain Assessment Pain Scale: 4 Pain Presence: Intermittent Pain Type: Contraction Pain Location: Abdomen; Back Pain Relief Measures: Comfort Measures Datetime: 01/19/2017 22:29 Stage of : Antepartum Pain Assessment Pain Scale: 4 Pain Presence: Intermittent Pain Type: Contraction; Ache Pain Location: Abdomen; Back Pain Relief Measures: Pain Medication Given; Comfort Measures Pain Assessment Comments: Tylenol 650mg PO given for pain. Datetime: 01/19/2017 22:20 Stage of : Antepartum Datetime: 01/19/2017 22:10 Stage of : Antepartum Labor Evaluation Frequency: Occasional Monitor Mode: External Duration (sec)2399: 50-60 Pattern: Normal: <= 5 Contractions in 10 Minutes Resting Tone [place]: Relaxed Pain Assessment Pain Scale: 4 Pain Presence: Intermittent Pain Type: Contraction Pain Location: Abdomen; Back Pain Relief Measures: Comfort Measures Datetime: 01/19/2017 21:30 Monitor Mode: External Datetime: 01/19/2017 21:02 Stage of : Antepartum Labor Evaluation Frequency: Occasional Monitor Mode: External Duration (sec)2399: 60-90 Pattern: Normal: <= 5 Contractions in 10 Minutes Resting Tone [place]: Relaxed Pain Assessment Pain Scale: 4 Pain Presence: Intermittent Pain Type: Contraction Pain Location: Abdomen; Back Pain Relief Measures: Comfort Measures Datetime: 01/19/2017 20:04 Stage of : Antepartum Labor Evaluation Frequency: None Monitor Mode: External Pattern: Normal: <= 5 Contractions in 10 Minutes Resting Tone [place]: Relaxed Heart Rate FHR Baseline Rate: 145 Monitor Mode: External US Variability: Moderate 6-25 bpm Accelerations: 15X15 Decelerations: None Category: Category I Comments: Reactive NST Datetime: 01/19/2017 19:35 Assessment Type: Ongoing Assessment Maternal Assessment Level of Consciousness: Fully Conscious DTR's/Clonus: DTRs 2+; No Clonus Headache: Denies Blurred Vision: No Respiratory Effort: Unlabored; Regular Rhythm; Equal Expansion Breath Sounds, Left: Clear and Equal Breath Sounds, Right: Clear and Equal Nausea/Vomiting: Denies RUQ Epigastric Pain: Denies Lower Extremities Edema: None Degree: None Upper Extremities Edema: None Degree: None Facial Edema: None Fall Risk Assessment History of Falling: (0) No Secondary Diagnosis: (0) No Ambulatory Aid: (0) Bedrest/Nurse Assist IV Therapy: (20) Yes Gait: (0) Normal/Bedrest/Immobile Mental Status: (0) Oriented to Own Ability Fall Score: 20 Fall Risk Score Definition: No Risk: No action required Datetime: 01/19/2017 19:29 Stage of : Antepartum Monitor Mode: External Monitor Mode: External US Pain Assessment Pain Scale: 4 Pain Presence: Intermittent Pain Type: Contraction Pain Location: Abdomen; Back Pain Relief Measures: Comfort Measures Datetime: 01/19/2017 19:00 Labor Evaluation Frequency: x3 with irritability Monitor Mode: External Duration (sec)2399: 50 Quality: Mild Resting Tone [place]: Relaxed Pain Assessment Pain Scale: 5 Pain Presence: Intermittent Pain Type: Cramping Pain Location: Abdomen; Back Datetime: 01/19/2017 18:00 Labor Evaluation Frequency: 0 Monitor Mode: External Resting Tone [place]: Relaxed Pain Assessment Pain Scale: 0 Pain Presence: None/Denies Pain Type: N/A Datetime: 01/19/2017 17:00 Labor Evaluation Frequency: irritability Monitor Mode: External Quality: Mild Resting Tone [place]: Relaxed Datetime: 01/19/2017 16:00 Labor Evaluation Frequency: x2 with irritability Monitor Mode: External Duration (sec)2399: 40 Quality: Mild Resting Tone [place]: Relaxed Datetime: 01/19/2017 15:45 Stage of : Antepartum Datetime: 01/19/2017 15:00 Labor Evaluation Frequency: x3 Monitor Mode: External Duration (sec)2399: 50 Quality: Mild Resting Tone [place]: Relaxed Datetime: 01/19/2017 14:00 Labor Evaluation Frequency: 0 Monitor Mode: External Datetime: 01/19/2017 13:48 Monitor Mode: External Contraction Comments: the patient complained she feels abdominal pressure Contraction Comments: The patient complained of feeling contractions Pain Assessment Pain Scale: 4 Pain Presence: Intermittent Pain Type: Cramping Pain Location: Abdomen; Back Datetime: 01/19/2017 12:02 Stage of : Antepartum Temperature Route: Oral Monitor Mode: External (Annotations: OFF) Contraction Comments: DENIES FEELINIG CONTRACTIONS Monitor Mode: External US (Annotations: off) Comments: + movements per patient Datetime: 01/19/2017 09:55 Stage of : Antepartum Datetime: 01/19/2017 08:59 Labor Evaluation Frequency: X1 Monitor Mode: External Duration (sec)2399: 60 Quality: Mild Resting Tone [place]: Relaxed Monitor Mode: External US FHR Baseline Changes: No Baseline Change Variability: Moderate 6-25 bpm Accelerations: 10X10 Decelerations: None Category: Category I Pain Assessment Pain Scale: 0 Pain Presence: None/Denies Pain Type: N/A Datetime: 01/19/2017 08:58 Comments: NST COMPLETED Datetime: 01/19/2017 08:13 Monitor Mode: External Contraction Comments: NST STARTED Monitor Mode: External US Datetime: 01/19/2017 08:07 Assessment Type: Ongoing Assessment Maternal Assessment Level of Consciousness: Fully Conscious DTR's/Clonus: DTRs 2+; No Clonus Headache: Denies Blurred Vision: No Respiratory Effort: Unlabored; Regular Rhythm; Equal Expansion Breath Sounds, Left: Clear and Equal Breath Sounds, Right: Clear and Equal Nausea/Vomiting: Denies RUQ Epigastric Pain: Denies Lower Extremities Edema: None Degree: None Facial Edema: None Temperature Route: Oral Fall Risk Assessment History of Falling: (0) No Secondary Diagnosis: (0) No Ambulatory Aid: (0) Bedrest/Nurse Assist IV Therapy: (20) Yes Gait: (0) Normal/Bedrest/Immobile Mental Status: (0) Oriented to Own Ability Fall Score: 20 Fall Risk Score Definition: No Risk: No action required Datetime: 01/19/2017 06:24 Stage of : Antepartum Temperature Route: Oral Pain Presence: None/Denies Datetime: 01/19/2017 01:55 Stage of : Antepartum Datetime: 01/19/2017 01:00 Stage of : Antepartum Pain Assessment Pain Scale: 0 Pain Presence: None/Denies Pain Type: N/A Pain Assessment Comments: pt denies uteriune contractions pain. abdomen soft on palpation Datetime: 01/18/2017 23:00 Stage of : Antepartum Pain Assessment Pain Scale: 0 Pain Presence: None/Denies Datetime: 01/18/2017 21:00 Stage of : Antepartum Pain Assessment Pain Scale: 0 Pain Presence: None/Denies Pain Assessment Comments: pt denies uc's pain. abdomen soft on palpation Datetime: 01/18/2017 19:56 Labor Evaluation Frequency: x 1 Monitor Mode: External Duration (sec)2399: 60 Quality: Mild Pattern: Normal: <= 5 Contractions in 10 Minutes Resting Tone [place]: Relaxed Heart Rate FHR Baseline Rate: 140 Monitor Mode: External US Variability: Moderate 6-25 bpm Accelerations: 10X10 Decelerations: None Category: Category I Pain Assessment Pain Scale: 0 Pain Presence: None/Denies Pain Type: N/A Pain Assessment Comments: pt denies ut pain. abdomen soft on palpation Membrane Status: Intact Datetime: 01/18/2017 19:33 Assessment Type: Ongoing Assessment Maternal Assessment Level of Consciousness: Fully Conscious DTR's/Clonus: DTRs 2+; No Clonus Headache: Denies Blurred Vision: No Respiratory Effort: Unlabored; Regular Rhythm; Equal Expansion Breath Sounds, Left: Clear and Equal Breath Sounds, Right: Clear and Equal Nausea/Vomiting: Denies RUQ Epigastric Pain: Denies Lower Extremities Edema: None Degree: None Facial Edema: None Fall Risk Assessment History of Falling: (0) No Secondary Diagnosis: (0) No Ambulatory Aid: (0) Bedrest/Nurse Assist IV Therapy: (20) Yes Gait: (0) Normal/Bedrest/Immobile Mental Status: (0) Oriented to Own Ability Fall Score: 20 Fall Risk Score Definition: No Risk: No action required Datetime: 01/18/2017 19:29 Stage of : Antepartum Temperature Route: Oral Datetime: 01/18/2017 19:27 Comments: MONITORS APPLIED FOR NST Datetime: 01/18/2017 17:11 Comments: u/s off, nst q shift Datetime: 01/18/2017 16:59 Labor Evaluation Frequency: 3/hr Monitor Mode: External Duration (sec)2399: 40-50 Quality: Mild Resting Tone [place]: Relaxed Heart Rate FHR Baseline Rate: 130 Monitor Mode: External US FHR Baseline Changes: No Baseline Change Variability: Moderate 6-25 bpm Accelerations: 15X15 Decelerations: None Category: Category I Pain Presence: None/Denies Datetime: 01/18/2017 16:19 Labor Evaluation Frequency: 3/hr Monitor Mode: External Duration (sec)2399: 60 Quality: Mild Resting Tone [place]: Relaxed Heart Rate FHR Baseline Rate: 140 Monitor Mode: External US FHR Baseline Changes: No Baseline Change Variability: Moderate 6-25 bpm Accelerations: 15X15 Decelerations: None Category: Category I Pain Presence: None/Denies Datetime: 01/18/2017 14:39 Labor Evaluation Frequency: 2 Monitor Mode: External Duration (sec)2399: 40 Quality: Mild Resting Tone [place]: Relaxed Heart Rate FHR Baseline Rate: 140 Monitor Mode: External US FHR Baseline Changes: No Baseline Change Variability: Moderate 6-25 bpm Accelerations: 15X15 Decelerations: None Category: Category I Datetime: 01/18/2017 13:25 Labor Evaluation Frequency: occasional Monitor Mode: External Quality: Mild Resting Tone [place]: Relaxed Contraction Comments: pt denies feeling contractions Heart Rate FHR Baseline Rate: 140 Monitor Mode: External US FHR Baseline Changes: No Baseline Change Variability: Moderate 6-25 bpm Accelerations: 15X15 Decelerations: None Category: Category I Datetime: 01/18/2017 13:24 Pain Assessment Pain Scale: 5 Pain Location: Head Pain Goal: 0 Datetime: 01/18/2017 13:17 Comments: moitors back on after lunch Datetime: 01/18/2017 10:57 Labor Evaluation Frequency: 1 Monitor Mode: External Duration (sec)2399: 80 Quality: Mild Resting Tone [place]: Relaxed Heart Rate FHR Baseline Rate: 135 Monitor Mode: External US FHR Baseline Changes: No Baseline Change Variability: Moderate 6-25 bpm Accelerations: 15X15 Decelerations: None Category: Category I Datetime: 01/18/2017 10:02 Labor Evaluation Frequency: 1 Monitor Mode: External Duration (sec)2399: 60 Quality: Mild Resting Tone [place]: Relaxed Heart Rate FHR Baseline Rate: 130 Monitor Mode: External US FHR Baseline Changes: No Baseline Change Variability: Moderate 6-25 bpm Accelerations: 15X15 Decelerations: None Category: Category I Datetime: 01/18/2017 09:08 Labor Evaluation Frequency: 1 Monitor Mode: External Duration (sec)2399: 80 Quality: Mild Resting Tone [place]: Relaxed Heart Rate FHR Baseline Rate: 130 Monitor Mode: External US FHR Baseline Changes: No Baseline Change Variability: Moderate 6-25 bpm Accelerations: 15X15 Decelerations: None Category: Category I Pain Presence: None/Denies Datetime: 01/18/2017 07:43 Labor Evaluation Frequency: occasional Monitor Mode: External Quality: Mild Resting Tone [place]: Relaxed Contraction Comments: pt denies feeling contractions Heart Rate FHR Baseline Rate: 140 Monitor Mode: External US FHR Baseline Changes: No Baseline Change Variability: Moderate 6-25 bpm Accelerations: 15X15 Decelerations: None Category: Category I Pain Assessment Pain Scale: 4 Pain Location: Back Pain Goal: 0 Datetime: 01/18/2017 07:42 Assessment Type: Ongoing Assessment Maternal Assessment Level of Consciousness: Fully Conscious DTR's/Clonus: DTRs 2+; No Clonus Headache: Denies Blurred Vision: No Respiratory Effort: Unlabored; Regular Rhythm; Equal Expansion Breath Sounds, Left: Clear and Equal Breath Sounds, Right: Clear and Equal Nausea/Vomiting: Denies RUQ Epigastric Pain: Denies Facial Edema: None Fall Risk Assessment History of Falling: (0) No Secondary Diagnosis: (0) No Ambulatory Aid: (0) Bedrest/Nurse Assist Gait: (0) Normal/Bedrest/Immobile Mental Status: (0) Oriented to Own Ability Datetime: 01/18/2017 07:00 Labor Evaluation Frequency: x2 Monitor Mode: External Duration (sec)2399: 50-70 Quality: Mild Resting Tone [place]: Relaxed Contraction Comments: pt c/o uc pain at 4 out of 10 Heart Rate FHR Baseline Rate: 140 Monitor Mode: External US FHR Baseline Changes: No Baseline Change Variability: Moderate 6-25 bpm Accelerations: 15X15 Decelerations: None Category: Category I Datetime: 01/18/2017 06:00 Labor Evaluation Frequency: x5 Monitor Mode: External Duration (sec)2399: 40-70 Quality: Mild Resting Tone [place]: Relaxed Contraction Comments: pt sleeping without apparent distress Heart Rate FHR Baseline Rate: 150 Monitor Mode: External US FHR Baseline Changes: No Baseline Change Variability: Moderate 6-25 bpm Accelerations: 15X15 Decelerations: None Category: Category I Datetime: 01/18/2017 05:00 Labor Evaluation Frequency: x2 Monitor Mode: External Duration (sec)2399: 40-60 Quality: Mild Resting Tone [place]: Relaxed Heart Rate FHR Baseline Rate: 140 Monitor Mode: External US FHR Baseline Changes: No Baseline Change Variability: Moderate 6-25 bpm Accelerations: 15X15 Decelerations: None Category: Category I Datetime: 01/18/2017 04:05 Stage of : Antepartum Temperature Route: Oral Datetime: 01/18/2017 04:00 Labor Evaluation Frequency: x3 Monitor Mode: External Duration (sec)2399: 50-80 Quality: Mild Resting Tone [place]: Relaxed Contraction Comments: pt states uc pain at 3 out of 10 Heart Rate FHR Baseline Rate: 145 Monitor Mode: External US FHR Baseline Changes: No Baseline Change Variability: Moderate 6-25 bpm Accelerations: 15X15 Decelerations: None Category: Category I Datetime: 01/18/2017 00:55 Fall Score: 20 Fall Risk Score Definition: No Risk: No action required Datetime: 01/17/2017 21:10 EGA: 31.0 Datetime: 11/15/2016 11:18 EGA: 22.0 Fall Score: 0 Fall Risk Score Definition: No Risk: No action required
== END 2017-02-22 00:25 | disposition home or self-care (01) ==
LOC: OBT 17:07 → L-D 17:08 → OBT 02-22 00:25
PROVIDERS: ATTEND Obstetrics & Gynecology
DX: O62.9 Abnormality of forces of labor, unspecified (principal); Z3A.29 29 weeks gestation of pregnancy
CPT/HCPCS: 81003; 87086; J7120; Z7500; Z7610; G0463

== ENCOUNTER 2017-02-25 15:44 | Outpatient (CLI) | payer MEDICAID ==
--- NOTE | 2017-02-22 08:30 | PN ---
Date/Time of Note Date/Time of Note DATE: 02/22/17 TIME: 08:26 OB Subjective Subjective Subjective Late Entry Note: 31 Year-old with SIUP at 36 weeks presents with a chief complaint of ucs. She has been receiving her care with Dr. Erickson. She states good movement. She denies nausea, vomiting, shortness of breath, chest pain, and abdominal pain between contractions, headache, visual changes, vaginal bleeding or LOF. OB Objective Objective Objective General: Patient appears well, alert and oriented, NAD, appropriate mood and affect ABD: gravid, soft, non-tender. Back: No CVA tenderness (B/L) LE: No clubbing, cyanosis, edema, thigh or calf tenderness bilaterally FHT: 135 bpm , moderate variability with acceleration, no deceleration-category I Contractions: Q 4-6 min. SVE: 50/-3/ceph/intact membrane OB Assessment/Plan Other plan: 31 Year-old with SIUP at 36 weeks with PTC. She received IVF and one dose of procardia. Ther was no further ucs. Cx exm was unchanged. - FHR: No sign of metabolic acidosis- Category I - Continuous EFM, toco - Reactive NST. - U/A: wnl - Symptoms and sign of labor, preeclampsia, kick count discussed with patient, she voiced understanding. All of her questions answered. - Patient was discharged home in stable condition with the appropriate discharge instructions provided. I would like patient to have close follow-up with her primary physician or outpatient clinic in 1-2 days or return to the ER for worsening symptoms or any other urgent concerns. LIANA JONES Feb 22, 2017 08:30
[~2017-02-25] VITALS: Ht 162.6 cm; Wt 72.3 kg
[2017-02-25 16:00] VITALS: Ht 162.6 cm; Wt 72.3 kg
[2017-02-25 16:01] VITALS: BP 112/59; PULSE 92; RESP 18
--- NOTE | 2017-02-25 16:19 | RADRPT ---
PROCEDURE: US biophysical profile. CLINICAL INDICATION: Leaking amniotic fluid. TECHNIQUE: Multiple sonographic images of the uterus were obtained. The images were revi ewed on a PACS workstation. COMPARISON: No prior studies are available for comparison. FINDINGS: There is a single live intrauterine gestation. heart rate is 161 beats per minute. The position is cephalic. The placenta is anterior grade III with no abruption or previa. The SEE is 21 cm. (Normal = 5-20 cm.) Breathing Movement: 2 Gross Body Movement: 2 Tone: 2 Qualitative Amniotic Fluid Volume: 2 TOTAL: 8 IMPRESSION: 1. The biophysical score is 8/8. RPTAT: QQ .Yogi Sinclair MD, Date Time Electronically viewed and signed by .Yogi Sinclair MD, on 02/25/2017 16:18 .R/
--- NOTE | 2017-02-25 17:15 | TRIAGE ---
OB Triage Datetime Report Generated by CPN: 02/25/2017 17:15 Datetime: 02/25/2017 17:05 Labor Evaluation Frequency: OCCAS Duration (sec)2399: 40-70 Quality: Mild Pattern: Normal: <= 5 Contractions in 10 Minutes Resting Tone [place]: Relaxed Heart Rate FHR Baseline Rate: 140 Monitor Mode: External US FHR Baseline Changes: No Baseline Change Variability: Moderate 6-25 bpm Accelerations: 15X15 Decelerations: None Category: Category I Datetime: 02/25/2017 16:10 Assessment Type: Admission Assessment Maternal Assessment Level of Consciousness: Fully Conscious DTR's/Clonus: DTRs 2+; No Clonus Headache: Denies Blurred Vision: No Respiratory Effort: Unlabored; Regular Rhythm; Equal Expansion Breath Sounds, Left: Clear and Equal Breath Sounds, Right: Clear and Equal Nausea/Vomiting: Denies RUQ Epigastric Pain: Denies Lower Extremities Edema: None Degree: None Upper Extremities Edema: None Degree: None Facial Edema: None Fall Risk Assessment History of Falling: (0) No Secondary Diagnosis: (0) No Ambulatory Aid: (0) Bedrest/Nurse Assist IV Therapy: (0) No Gait: (0) Normal/Bedrest/Immobile Mental Status: (0) Oriented to Own Ability Fall Score: 0 Fall Risk Score Definition: No Risk: No action required Labor Evaluation Frequency: IRREGULAR Monitor Mode: External Duration (sec)2399: 50-90 Quality: Mild Pattern: Normal: <= 5 Contractions in 10 Minutes Resting Tone [place]: Relaxed Heart Rate FHR Baseline Rate: 150 Monitor Mode: External US Variability: Moderate 6-25 bpm Accelerations: 15X15 Decelerations: None Category: Category I Datetime: 02/25/2017 16:06 Temperature Route: Axillary Datetime: 02/25/2017 16:04 Time of Arrival: 02/25/2017 15:45 EGA: 36.4 Arrived By: Ambulatory Arrived From: Home Chief Complaint: LEAKING Movement: Present Contractions: Irregular Rupture of Membranes: Denies Vaginal Bleeding: None Vaginal Discharge: Denies Recent Sexual Intercouse: Denies Abdominal Trauma: Not Applicable Patient Complaints: Contractions; Other Time Provider Notified: 02/25/2017 16:45 Provider Notified: DR CASTELLANOS Initial Plan: NST, ROM+, BPP WITH SEE Datetime: 02/21/2017 19:20 Fall Score: 0 Fall Risk Score Definition: No Risk: No action required Datetime: 02/21/2017 17:32 Fall Score: 0 Fall Risk Score Definition: No Risk: No action required Datetime: 02/21/2017 17:31 EGA: 36.0 Datetime: 01/19/2017 19:35 Fall Score: 20 Fall Risk Score Definition: No Risk: No action required Datetime: 01/19/2017 08:07 Fall Score: 20 Fall Risk Score Definition: No Risk: No action required Datetime: 01/18/2017 19:33 Fall Score: 20 Fall Risk Score Definition: No Risk: No action required Datetime: 01/18/2017 00:55 Fall Score: 20 Fall Risk Score Definition: No Risk: No action required Datetime: 01/17/2017 21:10 EGA: 31.0 Datetime: 11/15/2016 11:18 EGA: 22.0 Fall Score: 0 Fall Risk Score Definition: No Risk: No action required
== END 2017-02-25 17:25 | disposition home or self-care (01) ==
LOC: L-D 15:44 → OBT 15:44
PROVIDERS: ATTEND Obstetrics & Gynecology
DX: O62.9 Abnormality of forces of labor, unspecified (principal); Z3A.29 29 weeks gestation of pregnancy
CPT/HCPCS: 76818; 84112; Z7500; G0463

== ENCOUNTER 2017-02-28 12:20 | Outpatient (CLI) | payer MEDICAID ==
[~2017-02-28] VITALS: Ht 162.6 cm; Wt 71.4 kg
[2017-02-28 13:15] VITALS: Ht 162.6 cm; Wt 71.4 kg
[2017-02-28] MEDS ORDERED: ONDANSETRON 4 MG INJ IV STA (13:17)
[2017-02-28] MEDS ORDERED: LOPERAMIDE 2 MG CAP PO PRN (13:30)
[2017-02-28] MEDS ORDERED: LACTATED RINGER'S 1,000 ML IV STA (13:55)
--- NOTE | 2017-02-28 15:39 | RADRPT ---
PROCEDURE: US OB biophysical profile. CLINICAL INDICATION: evaluation TECHNIQUE: Multiple sonographic images of the pelvis were obtained. The images were reviewed on a PACS workstation. COMPARISON: Obstetrical ultrasound from 02/25/2017 FINDINGS: There is a single viable intrauterine gestation. Cardiac activity is present with 137 beats per min kamar. There is a vertex presentation. The placenta is anterior. There is no evidence of placental abruption. There is a normal amount of amniotic fluid with an SEE = 12.5 cm. Biophysical profile: movement 2/2 tone 2/2. breathing 2/2 SEE 2/2 Total 04/19 RPTAT: AA . IMPRESSION: Normal biophysical profile. Physician Gilda Date Time Electronically viewed and signed by Physician Gilda on 02/28/2017 15:39 RA/
--- NOTE | 2017-02-28 17:25 | TRIAGE ---
OB Triage Datetime Report Generated by CPN: 02/28/2017 17:24 Datetime: 02/28/2017 16:00 Vaginal Exam Dilatation (cms): 1.0 Effacement (%): 60 Station: -3 Datetime: 02/28/2017 15:56 Labor Evaluation Frequency: 3-4 Monitor Mode: External Duration (sec)2399: 50-80 Quality: Mild Pattern: Normal: <= 5 Contractions in 10 Minutes Resting Tone [place]: Relaxed Heart Rate FHR Baseline Rate: 130 Monitor Mode: External US FHR Baseline Changes: No Baseline Change Variability: Moderate 6-25 bpm Accelerations: 15X15 Decelerations: None Category: Category I Pain Assessment Pain Scale: 4 Pain Presence: Intermittent Pain Type: Cramping Pain Location: Abdomen Pain Relief Measures: Comfort Measures Datetime: 02/28/2017 15:39 Labor Evaluation Frequency: 3-4 Monitor Mode: External Duration (sec)2399: 50-70 Quality: Moderate Pattern: Normal: <= 5 Contractions in 10 Minutes Resting Tone [place]: Relaxed Heart Rate FHR Baseline Rate: 130 Monitor Mode: External US FHR Baseline Changes: No Baseline Change Variability: Moderate 6-25 bpm Accelerations: 15X15 Decelerations: None Category: Category I Pain Assessment Pain Scale: 1 Pain Presence: Intermittent Pain Type: Cramping Pain Location: Abdomen Pain Relief Measures: Comfort Measures Datetime: 02/28/2017 14:51 Vaginal Exam Dilatation (cms): 1.0 Effacement (%): 60 Station: -3 Datetime: 02/28/2017 13:02 Stage of : OB Triage Assessment Type: Triage Maternal Assessment Level of Consciousness: Fully Conscious DTR's/Clonus: DTRs 2+; No Clonus Headache: Denies Blurred Vision: No Respiratory Effort: Unlabored; Regular Rhythm; Equal Expansion Breath Sounds, Left: Clear and Equal Breath Sounds, Right: Clear and Equal Nausea/Vomiting: Denies RUQ Epigastric Pain: Denies Lower Extremities Edema: None Degree: None Upper Extremities Edema: None Degree: None Facial Edema: None Temperature Route: Oral Fall Risk Assessment History of Falling: (0) No Secondary Diagnosis: (0) No Ambulatory Aid: (0) Bedrest/Nurse Assist IV Therapy: (0) No Gait: (0) Normal/Bedrest/Immobile Mental Status: (0) Oriented to Own Ability Fall Score: 0 Fall Risk Score Definition: No Risk: No action required Monitor Mode: External Heart Rate FHR Baseline Rate: 135 Monitor Mode: External US FHR Baseline Changes: No Baseline Change Variability: Moderate 6-25 bpm Accelerations: 15X15 Decelerations: None Datetime: 02/28/2017 12:12 Time of Arrival: 02/28/2017 12:12 EGA: 37.0 Arrived By: Ambulatory Arrived From: Home Chief Complaint: VOMITING AND DIARHEA FOR 2 DAYS Movement: Present Contractions: Denies/Absent Rupture of Membranes: Denies Vaginal Bleeding: None Vaginal Discharge: Denies Recent Sexual Intercouse: Denies Abdominal Trauma: Not Applicable Patient Complaints: Nausea; Vomiting; Other Time Provider Notified: 02/28/2017 13:10 Provider Notified: [facility] Initial Plan: IV HYDRATION, NST, BPP AND ZOFRAN, IMODIUM Datetime: 02/25/2017 16:10 Fall Score: 0 Fall Risk Score Definition: No Risk: No action required Datetime: 02/25/2017 16:04 EGA: 36.4 Datetime: 02/21/2017 19:20 Fall Score: 0 Fall Risk Score Definition: No Risk: No action required Datetime: 02/21/2017 17:32 Fall Score: 0 Fall Risk Score Definition: No Risk: No action required Datetime: 02/21/2017 17:31 EGA: 36.0 Datetime: 01/19/2017 19:35 Fall Score: 20 Fall Risk Score Definition: No Risk: No action required Datetime: 01/19/2017 08:07 Fall Score: 20 Fall Risk Score Definition: No Risk: No action required Datetime: 01/18/2017 19:33 Fall Score: 20 Fall Risk Score Definition: No Risk: No action required Datetime: 01/18/2017 00:55 Fall Score: 20 Fall Risk Score Definition: No Risk: No action required Datetime: 01/17/2017 21:10 EGA: 31.0 Datetime: 11/15/2016 11:18 EGA: 22.0 Fall Score: 0 Fall Risk Score Definition: No Risk: No action required
--- NOTE | 2017-02-28 21:44 | CONS ---
Date/Time of Note Date/Time of Note DATE: 02/28/17 TIME: 21:37 Consultation Date/Type/Reason Admit Date/Time March 30, 2017 OB triage consult Reason for Consultation This patient is 31 years old 5 para 3 1 her previous 3 deliveries were over spontaneous vaginal Her estimated date of confinement was March 21, 2017 which make her about 37 weeks and 0 days She came in mostly complaining of vomiting and diarrhea On examination her general vital signs were normal with blood pressure of 106/67 , pulse rate 82, respiration 19 and,, temperature 98.1 Current Medications Medications (Trade) Dose Ordered Sig/Freddy Route PRN Reason Start Time Stop Time Status Last Admin Dose Admin Ondansetron HCl (Zofran Inj) 4 mg ONCE STAT IV 02/28/17 13:17 02/28/17 13:22 DC 02/28/17 13:54 4 MG Loperamide HCl 4 mg 4 mg PRN PRN PO DIARRHEA 02/28/17 13:30 02/28/17 17:27 DC 02/28/17 14:50 4 MG Lactated Ringer's (Lr) 1,000 ml @ 125 mls/hr Q8H STAT IV 02/28/17 13:55 02/28/17 17:27 DC 02/28/17 14:03 125 MLS/HR Constitutional: No chills, No diaphoresis, No disoriented, No febrile, No improved, No no complaints, No other, No poor po, No requiring IVF, No requiring O2 Eyes: No discharge, No no complaints, No other, No pain, No redness, No visual change ENT: No bleeding, No congestion, No discharge, No dysphagia, No no complaints, No other, No pain, No sore throat Respiratory: No cough, No no complaints, No other, No pain, No pleuritic pain, No shortness of breath, No sputum, No wheezing Cardiovascular: No chest pain, No edema, No lightheadedness, No no complaints, No orthopenea, No other, No palpitations, No paroxysmal nocturnal dyspnea Gastrointestinal: No blood, No constipation, No decreased appetite, No diarrhea , No flatus, No nausea, No no complaints, No other, No pain, No passing stool, No vomiting Genitourinary: other (On pelvic examination cervix was about 1 cm dilated 60% effaced and -3 station with intact membranes), No bleeding, No discharge, No dysuria, No flank pain, No hematuria, No no complaints Musculoskeletal: No back pain, No bone/joint pain, No neck pain, No no complaints, No other, No restricted range of motion, No swelling Skin: other (Not much sign of dehydration), No bruising, No erythema, No laceration, No no complaints, No pruritis, No rash, No skin lesions Neurologic: other (Her knee-jerk reflex was normal), No confusion, No dizziness, No focal-weakness, No headache, No no complaints , No seizure, No syncope Endocrine: No dry skin, No no complaints, No other, No polydypsia, No polyuria , No temp intolerance Additional Comments An ultrasound study was performed which was reported as a single viable intrauterine gestation with cardiac activity of 1 37 bpm ,vertex presentation, placenta was anterior and her SEE was 12.5 biophysical profile was 8/8 With these finding patient was discharged home to rest at home drink plenty of fluids and return to the clinic to be seen in 2 days Social History Smoking Status: Never smoker PRADEEP KING MD Feb 28, 2017 21:44
== END 2017-02-28 17:27 | disposition home or self-care (01) ==
LOC: L-D 12:20 → OBT 12:20
PROVIDERS: ATTEND Obstetrics & Gynecology
DX: O21.2 Late vomiting of pregnancy (principal); Z3A.37 37 weeks gestation of pregnancy
CPT/HCPCS: 76818; J2405; J7120; Z7610

== ENCOUNTER 2017-03-10 18:15 | Inpatient (IN) | payer MEDICAID ==
[~2017-03-10] VITALS: Ht 162.6 cm; Wt 73.1 kg
[2017-03-10 18:32] VITALS: Ht 162.6 cm; Wt 73.1 kg
[2017-03-10] MEDS ORDERED: METHYLERGONOVINE 0.2 MG INJ IM PRN (19:00)
[2017-03-10] MEDS ORDERED: OXYTOCIN 30 UNITS/LR 500 ML IV PRN (19:00)
[2017-03-10] MEDS ORDERED: LIDOCAINE 1% (MPF) 30 ML INJ INJ PRN (19:00)
[2017-03-10] MEDS ORDERED: CARBOPROST 250 MCG INJ IM PRN (19:00)
[2017-03-10] MEDS ORDERED: MISOPROSTOL 200 MCG TAB PR PRN (19:00)
[2017-03-10] MEDS ORDERED: LACTATED RINGER'S 1,000 ML IV PRN (19:00)
[2017-03-10] MEDS ORDERED: OXYTOCIN 30 UNITS/LR 500 ML IV SCH ×2 (19:00)
[2017-03-10] MEDS ORDERED: BUTORPHANOL 2 MG INJ IV PRN ×2 (19:00)
[2017-03-10] MEDS: LACTATED RINGER'S 1,000 ML IV SCH (20:16)
--- NOTE | 2017-03-10 20:55 | RADRPT ---
PROCEDURE: US OB. CLINICAL INDICATION: History of large for gestational age . TECHNIQUE: Multiple sonographic images of the uterus were obtained. The images were revi ewed on a PACS workstation. COMPARISON: No prior studies are available for comparison. FINDINGS: There is a single live intrauterine gestation. heart rate is 154 beats per minute. Measurements were made in order to determine age. The results are as follows: BPD = 9.04 cm. HC = 33.15 cm. AC = 35.95 cm. FL = 7.36 cm. Estimated weight is 3579 +/- 537 grams. LMP growth percentile is 73 %. Menstrual age by ultrasound dates is 38 weeks 0 days. The estimated date of delivery is 03/24/2017. Position is cephalic and placenta is anterior grade II. There is no evidence for an abruption or [place] previa. IMPRESSION: 1. Single live intrauterine gestation of 38 weeks 0 days menstrual age by ultrasound dates. 2. The estimated date of delivery is 03/24/2017. RPTAT: QQ .Yogi Sinclair MD, Date Time Electronically viewed and signed by .Yogi Sinclair MD, on 03/10/2017 20:54 .R/
[2017-03-10] MEDS ORDERED: DINOPROSTONE 10 MG VAG SUPP VAG ONE (21:00)
[2017-03-10 21:15] LABS: BASOPHILS % 0.1 % (0.0-2.0); EOSINOPHILS # 0.1 10^3/ul (0.0-0.5); EOSINOPHILS % 0.6 % (0.0-7.0); HEMATOCRIT 33.5 % (37.0-47.0); HEMOGLOBIN 11.1 g/dl (12.0-16.0); LYMPHOCYTES % 20.6 % (15.0-51.0); MEAN CORPUSCULAR HEMOGLOBIN 30.5 pg (29.0-33.0); MEAN CORPUSCULAR HGB CONC 33.1 g/dl (32.0-37.0); MEAN PLATELET VOLUME 11.1 fl (7.4-10.4); MONOCYTE # 0.7 10^3/ul (0.3-0.9); MONOCYTES % 6.6 % (0.0-11.0); NEUTROPHIL # 7.1 10^3/ul (1.6-7.5); NEUTROPHILS % 71.5 % (39.0-77.0); PLATELET COUNT 249 10^3/UL (140-415); RED BLOOD COUNT 3.64 10^6/ul (4.20-5.40); RED CELL DISTRIBUTION WIDTH 12.9 % (11.5-14.5); WHITE BLOOD COUNT 9.9 10^3/ul (4.8-10.8)
[2017-03-10 21:33] LABS: INR 0.94; PROTIME 12.6 Sec (12.2-14.2)
[2017-03-10 21:34] LABS: PARTIAL THROMBOPLASTIN TIME 25.2 Sec (25.0-35.0)
[2017-03-11] MEDS ORDERED: FENTAnyl 2MCG/ML-ROPIV 0.2% 100 ML ONE (02:37)
[2017-03-11] MEDS: LACTATED RINGER'S 1,000 ML IV SCH ×2 (03:00→10:00)
[2017-03-11] MEDS ORDERED: NALOXONE (0.4 MG/ML) INJ IV PRN (03:30)
[2017-03-11] MEDS ORDERED: FENTAnyl 2MCG/ML-ROPIV 0.2% 100 ML BAG EPI SCH (03:30)
[2017-03-11] MEDS ORDERED: DIPHENHYDRAMINE 50 MG INJ IV PRN (03:30)
[2017-03-11] MEDS ORDERED: ONDANSETRON 4 MG INJ IV PRN ×2 (03:30→14:30)
[2017-03-11] MEDS ORDERED: OXYTOCIN 30 UNITS/LR 500 ML IV SCH (10:00)
[2017-03-11] MEDS ORDERED: DEXTROSE 5%-LR 1,000 ML IV SCH (12:00)
[2017-03-11 14:00] VITALS: BP 107/63; PULSE 61; RESP 16
[2017-03-11 14:30] VITALS: BP 131/60; PULSE 61; RESP 20
[2017-03-11] MEDS ORDERED: BENZOCAINE 20% 56 ML SPRAY TOP PRN (14:30)
[2017-03-11] MEDS ORDERED: DIBUCAINE 1% 30 GM OINT PR PRN (14:30)
[2017-03-11] MEDS ORDERED: WITCH HAZEL/GLYCERIN PAD PR PRN (14:30)
[2017-03-11] MEDS ORDERED: OXYCODONE/ASPIRIN (4.88/325) TAB PO PRN ×2 (14:30)
[2017-03-11] MEDS: OXYTOCIN 30 UNITS/LR 500 ML IV SCH ×2 (14:30→17:45)
[2017-03-11] MEDS ORDERED: ACETAMINOPHEN 325 MG TAB PO PRN (14:30)
[2017-03-11] MEDS ORDERED: ACETAMINOPHEN/CODEINE #3 TAB PO PRN (14:30)
[2017-03-11 16:05] VITALS: BP 110/65; PULSE 63; RESP 18
[2017-03-11] MEDS: ACETAMINOPHEN/CODEINE #3 TAB PO PRN ×2 (16:07→20:27)
[2017-03-11] MEDS: LANOLIN 7 GM TUBE TOP PRN (16:07)
[2017-03-11] MEDS: IBUPROFEN 600 MG TAB PO SCH ×2 (17:46→23:59)
[2017-03-11 20:00] VITALS: BP 107/74; PULSE 65; RESP 19
[2017-03-11] MEDS: SENNA/DOCUSATE NA (8.6MG/50MG) TAB PO SCH (20:28)
[2017-03-12] VITALS: BP 103/53; PULSE 17; RESP 17
[2017-03-12 04:00] VITALS: BP 97/56; PULSE 62; RESP 20
[2017-03-12] MEDS: IBUPROFEN 600 MG TAB PO SCH ×4 (05:36→23:55)
[2017-03-12 08:00] VITALS: BP 99/56; PULSE 60; RESP 17
[2017-03-12 09:29] LABS: BASOPHILS % 0.1 % (0.0-2.0); EOSINOPHILS # 0.1 10^3/ul (0.0-0.5); EOSINOPHILS % 1.2 % (0.0-7.0); HEMATOCRIT 32.8 % (37.0-47.0); HEMOGLOBIN 10.8 g/dl (12.0-16.0); LYMPHOCYTES # 2.6 10^3/ul (0.8-2.9); LYMPHOCYTES % 31.6 % (15.0-51.0); MEAN CORPUSCULAR HEMOGLOBIN 30.5 pg (29.0-33.0); MEAN CORPUSCULAR HGB CONC 32.9 g/dl (32.0-37.0); MEAN CORPUSCULAR VOLUME 92.7 fl (82.0-101.0); MONOCYTE # 0.4 10^3/ul (0.3-0.9); MONOCYTES % 4.8 % (0.0-11.0); NEUTROPHILS % 61.9 % (39.0-77.0); PLATELET COUNT 211 10^3/UL (140-415); RED BLOOD COUNT 3.54 10^6/ul (4.20-5.40); RED CELL DISTRIBUTION WIDTH 12.6 % (11.5-14.5); WHITE BLOOD COUNT 8.1 10^3/ul (4.8-10.8)
[2017-03-12] MEDS: SENNA/DOCUSATE NA (8.6MG/50MG) TAB PO SCH ×2 (09:37→20:49)
[2017-03-12 12:15] VITALS: BP 98/58; PULSE 62; RESP 18
--- NOTE | 2017-03-12 13:22 | HP ---
Date/Time of Note Date/Time of Note DATE: 03/12/17 TIME: 13:13 OB - History Hx of Present Free Text/Dictation 30 years old female 5 para 333 PT 0 SAB 1 IAB 0L3 admitted to [facility] at 38 weeks and 3 days with complaint of generalized body itching even though patient had cholecystectomy 2012, otherwise her not complicated with gestational diabetes - induced hypertension or any other serious medical or surgical condition clinic referred her for induction of labor, this patient has been under the care of the [facility] for her care Chief Complaint: Induction of labor Estimated Due Date: Mar 21, 2017 : 5 Para: 3 Spontaneous : 1 Care: Good Care Ultrasounds: Normal mid trimester US Obstetrical Complications: None Medical Complications: None Past Family/Social History * Past Medical, Surgical, Family and Obstetric Histories reviewed from chart. Rubella: immune RPR/VDRL: Negative GBS Status: Negative HBsAG: Negative OB Admission Exam Vital Signs Vital Signs Vital Signs Date Time Temp Pulse Resp B/P Pulse Ox O2 Delivery O2 Flow Rate FiO2 03/12/17 08:00 97.9 60 17 99/56 Room Air Physical Exam HEENT: WNL Heart: Rhythm Normal Lungs: Clear, Equal Abdomen: WNL Extremities: Normal Cervical Dilatation: None Effacement: 50% Station: -2 Membranes: Intact Heart Rate: 130's Accelerations: Accelerations Present Decelerations: No Decelerations Varibility: Moderate Contractions on Admission: None Last 72 hours Lab Results CBC & BMP 03/10/17 20:10 03/12/17 08:40 LUISITO CASTELLANOS MD Mar 12, 2017 13:22
--- NOTE | 2017-03-12 13:27 | LDN ---
Date/Time of Note Date/Time of Note DATE: 03/12/17 TIME: 13:23 Delivery Summary Normal spontaneous vaginal delivery of a baby girl from OA position shoulders delivered without any difficulty rest of the baby's body followed cord clamped after stopped pulsation placenta spontaneous expulsion inspected complete blood loss 250 cc Weeks of Gestation 38 weeks 4 days Placenta Delivered: Spontaneously Meconium: none Laceration repair: None Anesthesia type: Epidural Sponge & Needle done & correct: Yes All needle counts correct: Yes Any foreign bodies felt in the: No Problems: Infant Delivery Information Apgars 1 Minute: 9 5 Minute: 9 Suctioning Nose & mouth suctioned at conchita: Yes Delee suction performed: No Umbilical Cord Umbilical cord with: 3 Vessels Cord presentations: nuchal cord Nuchal cord present X: 2 Cord Blood was obtained: Yes LUISITO CASTELLANOS MD Mar 12, 2017 13:27
[2017-03-12] MEDS ORDERED: DIPHENHYDRAMINE 25 MG CAP PO PRN (14:30)
[2017-03-12 16:00] VITALS: BP 99/72; PULSE 60; RESP 16
[2017-03-12 19:45] VITALS: BP 100/53; PULSE 59; RESP 18
[2017-03-12] MEDS: LANOLIN 7 GM TUBE TOP PRN (20:50)
[2017-03-13 04:00] VITALS: BP 101/66; PULSE 66; RESP 18
[2017-03-13] MEDS: IBUPROFEN 600 MG TAB PO SCH ×2 (05:44→12:13)
[2017-03-13 08:15] VITALS: BP 102/63; PULSE 60; RESP 16
--- NOTE | 2017-03-13 08:39 | DS ---
Date/Time of Note Date/Time of Note DATE: 03/13/17 TIME: 08:37 Obstetrical Discharge Record Final Diagnosis Final Diagnosis: Term delivered Other Final Diagnosis patient is doing well and desires to go home. she denies any problems. Vaginal Delivery Obstetrical Delivery: Spontaneous Condition on Discharge Physical Assessment Voiding: Yes Bowel Movement: Yes Breast: Soft, non-tender, Filling Fundus: Firm Abdomen and Incision: soft, not tender Calf Tenderness: No Patient Condition: Good LAYTON BRYAN MD Mar 13, 2017 08:39
[2017-03-13] MEDS ORDERED: MEASLES,MUMPS,RUBELLA VACCINE INJ SC* ONE (09:00)
--- NOTE | 2017-03-13 11:32 | OPPN ---
Date/Time of Note Date/Time of Note DATE: 03/13/17 TIME: 11:32 Anesthesia Follow up Anesthesia Follow up Last documented vital signs Vital Signs Date Time Temp Pulse Resp B/P Pulse Ox O2 Delivery O2 Flow Rate FiO2 03/13/17 08:15 98.1 60 16 102/63 Room Air Respiratory function: WNL Cardiovascular function: WNL ANGELITA LONGORIA Mar 13, 2017 11:32
[2017-03-13] MEDS: SENNA/DOCUSATE NA (8.6MG/50MG) TAB PO SCH (12:13)
== END 2017-03-13 15:00 | disposition home or self-care (01) | DRG 775 ==
LOC: L-D 18:15 → OBT 18:15 → L-D 18:40 → PP1 03-11 13:48
PROVIDERS: ADMIT Obstetrics & Gynecology; ATTEND Obstetrics & Gynecology
PROC: 10E0XZZ Delivery of Products of Conception, External Approach (ICD-10-PCS; principal; 2017-03-12)
DX: O69.81X0 Labor and delivery complicated by cord around neck, without compression, not applicable or unspecified (principal); Z37.0 Single live birth; Z3A.38 38 weeks gestation of pregnancy
CPT/HCPCS: 62319; 76815; 85025; 85610; 85730; 86592; 86900; 86901; G0463; J2405; J2590; J3010; J7120; J7121

== ENCOUNTER 2018-04-04 16:32 | Emergency (ER) | END 2018-04-05 00:21 | disposition home or self-care (01) ==